=== PATIENT | male | born 1985 | race American Indian/Alaskan Native ===

== ENCOUNTER 2016-11-25 19:39 | Emergency (ER) | payer OTHER ==
--- NOTE | 2016-11-25 21:01 | XRay Report ---
FINAL REPORT PROCEDURE: XR HAND 3+V RT TECHNIQUE: RIGHT hand radiographs, AP, lateral, and oblique views. CPT 10853-UT HISTORY: right hand injury COMPARISON: No prior studies are available for comparison. FINDINGS: Fracture (s) and/or Dislocation(s): Healed 5th metacarpal fracture. No acute fracture. Alignment: Normal . Joint space(s): Normal . Soft tissues: Normal . Bone mineralization: Normal . Foreign bodies: None . IMPRESSION: No acute fracture seen.
--- NOTE | 2016-11-26 00:12 | Emergency Department Report ---
Upper Extremity - HPI Chief Complaint: Extremity Injury, Upper Stated Complaint: PAIN IN RT HAND Time Seen by Provider: 11/25/16 23:42 Upper Extremity: Right Hand Severity: moderate Symptoms: Yes Pain with Movement, Yes Limited Range of Movement, Yes Numbness, Yes Weakness, Yes Swelling, No Deformity, No Bruising/Ecchymosis, No Laceration or Abrasion Other History: Patient comes into the ER today with complaints of right hand pain for the past week. Patient states that years ago he injured his right hand but never went and saw anybody for for it. 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 Patient denies any recent injury. Rates that the numbness is mostly in his right fifth and fourth fingers. 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 ED Review of Systems ROS: Stated complaint: PAIN IN RT HAND Other details as noted in HPI Constitutional: denies: chills, fever Eyes: denies: eye pain, eye discharge, vision change ENT: denies: ear pain, throat pain Respiratory: denies: cough, shortness of breath, wheezing Cardiovascular: denies: chest pain, palpitations Endocrine: no symptoms reported Gastrointestinal: denies: abdominal pain, nausea, diarrhea Genitourinary: denies: urgency, dysuria Musculoskeletal: denies: back pain, joint swelling, arthralgia Skin: denies: rash, lesions Neurological: weakness (right hand), numbness. denies: headache, paresthesias Psychiatric: denies: anxiety, depression Hematological/Lymphatic: denies: easy bleeding, easy bruising ED Past Medical Hx - Past Medical History Previous Medical History?: No - Surgical History Past Surgical History?: No - Social History Smoking Status: Current Every Day Smoker Substance Use Type: None - Medications Home Medications: Home Medications Medication Instructions Recorded Confirmed Last Taken Type Naproxen [Naprosyn] 500 mg PO BID PRN #20 tablet 07/15/15 Unknown Rx predniSONE [Deltasone] 20 mg PO QDAY #18 tab 11/26/16 Unknown Rx traMADol [Ultram] 50 mg PO Q6HR PRN #20 tablet 11/26/16 Unknown Rx Upper Extremity Exam - Exam General: Vital signs noted. No distress. Alert and acting appropriately. Head and Torso: No HEENT Abnormality, No Neck Tenderness, No Chest/Lungs Abnormality, No Abdominal Tenderness, No Back Tenderness Shoulder Exam: Yes Normal Range of Motion in Shoulder, No Shoulder Tenderness, No Clavicle Tenderness, No Shoulder Deformity, No AC Joint Tenderness Arm Exam: No Arm/Humerus Tenderness, No Arm Deformity Elbow: Yes Elbow Tenderness (positive Tinel's to medial epicondyles), No Normal Range of Motion in Elbow, No Elbow Deformity Forearm: No Forearm Tenderness, No Forearm Deformity, No Pain with Pronation, No Pain with Supination Wrist: Yes Normal ROM in Wrist, No Wrist Tenderness, No Wrist Deformity, No Snuffbox Tenderness, No Pain with Axial Thumb Compression Hand: Yes Hand Tenderness (right fifth medical carpal region), Yes Hand Deformity (slight elevation to mid shaft of right carpal bone dorsally. Small cystic swelling noted over the dorsal portion of the right fifth metacarpal bone.), Yes Normal ROM in Digit(s), No Digit Tenderness, No Digit(s) Deformity, No Tendon Dysfunction CMS Exam: Yes Normal Distal Pulses, Yes Normal Capillary Refill, Yes Normal Distal Sensation, No Broken Skin ED Course Vital Signs 11/25/16 19:59 Temperature 97.4 F L Pulse Rate 94 H Respiratory 16 Rate Blood Pressure 109/64 O2 Sat by Pulse 95 Oximetry ED Medical Decision Making - Radiology Data Radiology results: report reviewed, image reviewed interpreted by me: X-ray right hand: No acute fracture noted. Slight distal volar curvature of the fifth metacarpal bone consistent with old fracture. - Medical Decision Making Patient is nontoxic and hemodynamically stable. X-ray results reviewed and discussed the patient room. I believe patient's symptoms might be more related to ganglion cyst versus peripheral neuropathy from repetitive use at work. Patient was placed in a right boxer's Velcro splint here in the ER and I'll start patient on some medications to calm down his symptoms. I will refer patient to orthopedics for further evaluation and to ensure resolution of his condition. Patient is in agreement with treatment plan patient is stable for discharge. Critical care attestation.: If time is entered above; I have spent that time in minutes in the direct care of this critically ill patient, excluding procedure time. ED Disposition Clinical Impression: Right hand pain, Ganglion cyst of flexor tendon sheath of finger of right hand Disposition: - TO HOME OR SELFCARE Is pt being admited?: No Does the pt Need Aspirin: No Condition: Good Instructions: Peripheral Neuropathy (ED) Prescriptions: predniSONE [Deltasone] 20 mg PO QDAY #18 tab traMADol [Ultram] 50 mg PO Q6HR PRN #20 tablet PRN Reason: Pain Referrals: PRIMARY CARE, [Primary Care Provider] - 3-5 Days TOMY HUNTLEY MD [Staff Physician] - 3-5 Days Time of Disposition: 00:14
[2016-11-26 01:05] VITALS: BP 123/71
== END 2016-11-26 01:05 | disposition home or self-care (01) ==
LOC: ED 19:39
DX: M67.441 Ganglion, right hand (principal); M79.641 Pain in right hand; F17.200 Nicotine dependence, unspecified, uncomplicated